=== PATIENT | female | born 1940 | race Caucasian/White ===

== ENCOUNTER 2024-11-30 12:32 | Outpatient (CLI) | payer OTHER, SELFPAY ==
--- OUTSIDE RECORDS SUMMARY | 2024-11-30 14:27 | XMS_ITS | Clinical Summary ---
Author Organization [facility] Address [address] [place] [address] Care Team Providers Care Converter Skimmer Name Role Phone Anna Sutton MD Primary Care Provider Allergies Active Allergy Reactions Criticality Noted Date Comments Aleksander Inhibitors Cough Low 03/30/2018 Medications aspirin (ASPIR-81) 81 mg tablet take 1 tablet by oral route every day 0 0 07/27/19 14 Active Additional Information Patient taking differently:81 mg,Pre-op hold instructions for ASA will be given to pt by Dr Herbert's office., Reported on 10/03/2022 cholecalcifero l (VITAMIN D-3) 1,000 unit tablet Take 1 tablet (1,000 Units total) by mouth daily Active multivitamin capsule Take 1 capsule by mouth daily Active amLODIPine (NORVASC) 5 mg tablet Take 1 tablet (5 mg total) by mouth daily 90 tablet 3 03/08/20 24 Active irbesartan (AVAPRO) 75 mg tablet Take 1 tablet (75 mg total) by mouth daily 90 tablet 1 06/30/19 25 Active chlorthalidone (HYGROTON) 25 mg tablet TAKE 1 TABLET(25 MG) BY MOUTH DAILY 90 tablet 1 07/01/19 25 Active atorvastatin (LIPITOR) 80 mg tablet TAKE 1 TABLET(80 MG) BY MOUTH DAILY 90 tablet 1 07/01/19 25 Active irbesartan (AVAPRO) 300 mg tablet TAKE 1/2 TABLET BY MOUTH EVERY DAY 90 tablet 1 01/23/20 22 Discontinued Active Problems Problem Noted Date Diagnosed Date History of colon polyps 10/30/2022 Assessment & Plan (10/30/2022 11:11 AM CDT): Colonoscopy September 2022 with tubular adenoma. -repeat colonoscopy September 2027 Stenosis of right carotid artery 09/04/2022 Chronic diarrhea 04/28/2022 Overview (04/28/2022): Added automatically from request for surgery [id number] Assessment & Plan (10/30/2022 11:16 AM CDT): Chronic diarrhea for the past year, 4-5 loose watery bowel movements per day. Also has urgency to have a bowel movement after meals. No change with stopping dairy products. Does admit to drinking 2 cups of coffee daily. Patient also mentioned she had a cholecystectomy in May 2021. Colonoscopy September 2022 with biopsies negative for microscopic colitis, normal terminal ileum. Patient states diarrhea has resolved since last visit, therefore she did not complete stool studies. -follow up if diarrhea recurs Assessment & Plan (04/28/2022 1:20 PM BICYCLE MESSENGER): Chronic diarrhea for the past year, 4-5 loose watery bowel movements per day. Also has urgency to have a bowel movement after meals. No change with stopping dairy products. Does admit to drinking 2 cups of coffee daily. Last colonoscopy over 10 years ago. Patient also mentioned she had a cholecystectomy in May 2021. -advised patient to avoid coffee -we will order labs and stool studies for further evaluation -schedule colonoscopy -The risks (risks of bleeding, infection, perforation requiring surgery, missed polyps/cancer, dental injury, aspiration pneumonia, anesthesia complications such as drug reaction and cardiopulmonary complications including rare chance of ), benefits, and alternatives of the planned procedure were explained to the patient who understands and consents to having procedure done. Anemia 04/28/2022 Overview (04/28/2022): Added automatically from request for surgery [id number] Assessment & Plan (10/30/2022 11:17 AM CDT): Noted on labs from January of 2022, hemoglobin 11.7. Patient denies any overt GI bleeding. EGD and colonoscopy September 2022 as above. Labs June 2022 with normal hemoglobin. -if anemia recurs, can consider capsule endoscopy Assessment & Plan (04/28/2022 1:21 PM BICYCLE MESSENGER): Noted on labs from January of 2022, hemoglobin 11.7. Patient denies any overt GI bleeding. -schedule EGD same day as colonoscopy -The risks (risks of bleeding, infection, perforation requiring surgery, missed polyps/cancer, dental injury, aspiration pneumonia, anesthesia complications such as drug reaction and cardiopulmonary complications including rare chance of ), benefits, and alternatives of the planned procedure were explained to the patient who understands and consents to having procedure done. Gastroesophageal reflux disease without esophagi tis 04/28/2022 Assessment & Plan (10/30/2022 11:16 AM CDT): Patient states had GERD however this improved after cholecystectomy. No longer taking medication. EGD September 2022 with nonobstructive Schatzki's ring, 4 cm hiatal hernia, gastritis, and duodenal diverticulum. -Pepcid OTC p.r.n. -RECOMMENDATIONS given include: anti-reflux maneuvers, Avoid acidic foods like oranges and tomatoes., avoidance of spicy foods, avoid eating 3-4 hours before bed, elevation of the head of the bed, and weight loss Assessment & Plan (04/28/2022 1:21 PM BICYCLE MESSENGER): Patient states had GERD however this improved after cholecystectomy. No longer taking medication. -RECOMMENDATIONS given include: anti-reflux maneuvers, Avoid acidic foods like oranges and tomatoes., avoidance of spicy foods, avoid eating 3-4 hours before bed, elevation of the head of the bed, and weight loss Left foot pain 05/30/2021 Elevated alkaline phosphatase level 10/19/2018 Overview (10/19/2018): 4-19 Alk phos 140, repeat 6 mo Assessment & Plan (01/02/2020 9:38 AM CDT): Lab today Localized osteoporosis witho ut current pathological fracture 09/09/2016 Overview (01/02/2020): 3-17 hip -2.1 Osteopenia 11/07: RHINA left femoral neck -2.5 Assessment & Plan (01/02/2020 9:37 AM CDT): Next check 2020 Assessment & Plan (04/13/2019 7:20 AM CDT): Recommend to take Vitamin D 600-1000 units per day along with calcium 1200 units per day. Do bone building exercise (walking and light hand weights) most days. Assessment & Plan (10/12/2018 10:09 AM CDT): Repeat RHINA this year. Check vitamin D level. Assessment & Plan (09/24/2017 10:15 AM CDT): Check vitamin D. Impaired fasting glucose 09/03/2015 Overview (04/13/2019): 9-17 A1C 6.0% 10/08: 5.7% Watching sweets. Assessment & Plan (01/02/2020 9:46 AM CDT): Lab today Assessment & Plan (04/13/2019 7:18 AM CDT): Lab today Assessment & Plan (10/12/2018 10:07 AM CDT): The hemoglobin A1C level will be checked today. Discussed the importance of continuing to exercise regularly (at least four days a week) and to watch the intake of simple sugars and carbs. Alcohol should be limited to no more than 4-6 servings a week. Assessment & Plan (03/30/2018 10:13 AM CDT): The pre-diabetes is acceptably controlled. The hemoglobin A1C today is 5.8%. Discussed the importance of continuing to exercise regularly (at least four days a week) and to watch the intake of simple sugars and carbs. Assessment & Plan (09/24/2017 10:14 AM CDT): The hemoglobin A1C level will be checked today. Discussed the importance of continuing to exercise regularly (at least four days a week) and to watch the intake of simple sugars and carbs. Alcohol should be limited to no more than 4-6 servings a week. Assessment & Plan (03/11/2017 1:29 PM CDT): The hemoglobin A1C level will be checked today. Discussed the importance of continuing to exercise regularly (at least four days a week) and to watch the intake of simple sugars and carbs. Alcohol should be limited to no more than 4-6 servings a week. Bilateral carotid artery disease 01/22/2015 Overview (01/02/2020): 7-15 carotid: 50-75% stenosis on right May get light headed at time. Possible vision change and swallowing issues when this occurs - lasts a short time. 10/07: no change Assessment & Plan (08/18/2022 10:01 AM BICYCLE MESSENGER): Continue statin Assessment & Plan (01/02/2020 9:45 AM CDT): Stable No changes Assessment & Plan (04/13/2019 11:18 AM CDT): Will update carotid scan Assessment & Plan (09/24/2017 10:16 AM CDT): Repeat carotid dopplers. Continue aspirin and statin. Stage 3b chronic kidney disease 12/26/2014 Overview (09/26/2016): Chronic kidney disease stage 3 Assessment & Plan (01/02/2020 9:46 AM CDT): Keep the blood pressure and blood sugar under good control. Avoid NSAIDs (advil and Aleve). Stay well hydrated. Assessment & Plan (04/13/2019 7:19 AM CDT): Keep the blood pressure and blood sugar under good control. Avoid NSAIDs (advil and Aleve). Stay well hydrated. Assessment & Plan (10/12/2018 10:07 AM CDT): She knows to avoid anti-inflammatory medications. Will continue to follow closely. Assessment & Plan (09/24/2017 10:13 AM CDT): She knows to avoid anti-inflammatory medications. Will continue to follow closely. Assessment & Plan (03/11/2017 1:29 PM CDT): She knows to avoid anti-inflammatory medications. Will continue to follow closely. Atherosclerosis of aorta 10/25/2014 Overview (01/02/2020): Aortic atherosclerosis On a statin Assessment & Plan (02/29/2024 1:52 PM CDT): This was seen on past imaging and is basically plaque build up of the aorta. This can be normal with aging but elevated cholesterol, blood sugar, blood pressure, or smoking can make this worse. I recommend statin to treat this condition. Assessment & Plan (03/03/2023 1:31 PM CDT): This was seen on past imaging and is basically plaque build up of the aorta. This can be normal with aging but elevated cholesterol, blood sugar, blood pressure, or smoking can make this worse. I recommend statin to treat this condition. Assessment & Plan (08/18/2022 10:00 AM BICYCLE MESSENGER): This was seen on past imaging and is basically plaque build up of the aorta. This can be normal with aging but elevated cholesterol, blood sugar, blood pressure, or smoking can make this worse. I recommend statin to treat this condition. Assessment & Plan (08/14/2021 7:20 AM BICYCLE MESSENGER): This was seen on past imaging and is basically plaque build up of the aorta. This can be normal with aging but elevated cholesterol, blood sugar, blood pressure, or smoking can make this worse. I recommend statin to treat this condition. Assessment & Plan (02/11/2021 2:13 PM CDT): This was seen on past imaging and is basically plaque build up of the aorta. This can be normal with aging but elevated cholesterol, blood sugar, blood pressure, or smoking can make this worse. I recommend statin to treat this condition. Assessment & Plan (01/02/2020 9:37 AM CDT): Continue statin Assessment & Plan (04/13/2019 7:20 AM CDT): Ongoing- on a statin Assessment & Plan (10/12/2018 10:06 AM CDT): Continue with aspirin and statin therapy to decrease risk for heart attack and stroke as this is a marker that increases her risk for such. Assessment & Plan (09/24/2017 10:12 AM CDT): Continue statin, aspirin. Temporary cerebral vascular dysfunction 07/27/19 14 Overview (01/02/2020): TIA (transient ischemic attack) On statin and ASA BP controlled Assessment & Plan (01/02/2020 9:38 AM CDT): No return of symptoms Assessment & Plan (04/13/2019 7:19 AM CDT): No active symptoms Hyperlipidemia 07/27/2013 Overview (04/13/2019): HYPERLIPIDEMIA NEC/NOS On a statin Assessment & Plan (08/18/2022 10:01 AM BICYCLE MESSENGER): Continue statin Assessment & Plan (01/02/2020 9:46 AM CDT): We will check labs today and make adjustments to medications as needed. Patient should focus on limiting bad fats in the diet and using exercise as a way to improve the lipid status. Assessment & Plan (04/13/2019 12:52 PM CDT): Continue on the statin Assessment & Plan (10/12/2018 10:07 AM CDT): To continue to efforts at getting 4-5 servings of fruits and/or vegetables a day. A fasting lipid profile will be checked today. Assessment & Plan (09/24/2017 10:13 AM CDT): To continue to efforts at getting 4-5 servings of fruits and/or vegetables a day. A fasting lipid profile will be checked today. Benign hypertensive kidney d isease with chronic kidney disease stage I through stage IV, or unspecified(403.10) 07/27/2013 Overview (01/02/2020): 4-19 increase chlorthalidone from 12.5/d to 25/d She is taking medications regularly. She denies chest pains, palpitations or shortness of breath. Assessment & Plan (01/02/2020 9:44 AM CDT): The blood pressure is under good control. Ideally it should be under 130/80. Continue medications without adjustment. Continue efforts to eat well (4-5 fruits and veggies) daily and exercise for about 30 min nearly every day. Adopt the [place] diet. Watch salt intake, keeping to less than 2000mg per day. Limit alcohol. Include stratagies to cope with stress. Labs will be checked today. Assessment & Plan (04/13/2019 7:19 AM CDT): The blood pressure is under good control. Ideally it should be under 130/80. Continue medications without adjustment. Continue efforts to eat well (4-5 fruits and veggies) daily and exercise for about 30 min nearly every day. Adopt the [place] diet. Watch salt intake, keeping to less than 2000mg per day. Limit alcohol. Include stratagies to cope with stress. Assessment & Plan (10/12/2018 10:31 AM CDT): The blood pressure is not quite adequately controlled. Ideally, I want it below 130/80. Will continue with the same medications as prescribed but have her increase the chlorthalidone to 25 mg a day. Salt intake needs to be restricted to keep the sodium level at less than 2000 mg a day. Regular exercise is also important and should be at least four days a week. She is to check her pressure at home and send me readings in two weeks. Assessment & Plan (03/30/2018 10:20 AM CDT): The blood pressure is adequately controlled but the cough is likely due to lisinopril. Ideally, I want it below 130/80. Will change lisinopril to irbesartan 300 mg a day. Salt intake needs to be restricted to keep the sodium level at less than 2000 mg a day. Regular exercise is also important and should be at least four days a week. Assessment & Plan (09/24/2017 10:12 AM CDT): The blood pressure is adequately controlled. Ideally, I want it below 130/80. Will continue with the same medications as prescribed. Salt intake needs to be restricted to keep the sodium level at less than 2000 mg a day. Regular exercise is also important and should be at least four days a week. Assessment & Plan (03/11/2017 1:27 PM CDT): The blood pressure is adequately controlled. Ideally, I want it below 130/80. Will continue with the same medications as prescribed. Salt intake needs to be restricted to keep the sodium level at less than 2000 mg a day. Regular exercise is also important and should be at least four days a week. Chronic diastolic heart failure 07/27/2013 Overview (09/24/2017): 1-14 echo: grade I diast dysfunction, EF 75% Assessment & Plan (01/02/2020 9:45 AM CDT): Stable No changes Assessment & Plan (04/13/2019 7:19 AM CDT): Stable No changes Assessment & Plan (10/12/2018 10:06 AM CDT): Currently well compensated. No changes to her medical regimen. Assessment & Plan (09/24/2017 10:12 AM CDT): Control BP better. As below. Resolved Problems Problem Noted Date Diagnosed Date Resolved Date Fracture treatment convalesc ence or palliative care 05/09/2021 03/03/2023 Displaced avulsion fracture (chip fracture) of left talus, initial encounter for closed fracture 05/09/2021 03/03/2023 Acute pain of left knee 04/13/201912/20 Overview (04/13/2019): Last week - twisted her knee - did not fall. Tylenol used and resting and elevating. May be getting better. Assessment & Plan (04/13/2019 11:36 AM CDT): Use Rest, Ice, Compression, Elevation for the next week Then can start PT if needed Use Tylenol 1000 mg three times per day for pain Call if not improving Health examination of defined subpopulation 04/13/2019 03/03/2023 Overview (04/13/2019): [employer] paperwork reviewed Assessment & Plan (01/02/2020 9:39 AM CDT): [employer] paperwork completed Assessment & Plan (04/13/2019 12:54 PM CDT): [employer] paperwork completed Medicare annual wellness visit, subsequent 09/24/2017 02/04/2021 Assessment & Plan (01/02/2020 11:09 AM CDT): Dentist: up to date Eye exam: up to date Mammogram: no longer screening DEXA: up to date Colon: no longer screening The patient should continue to focus on diet and exercise as a way to maintain and improve health. Screenings and immunizations are up to date. Will review labs performed today and contact the patient with the results. At this point continue the current medication regimen. Assessment & Plan (10/12/2018 10:06 AM CDT): Please see below for a list of your medical conditions and recommendations. Assessment & Plan (09/24/2017 10:09 AM CDT): Please see below for a list of your medical conditions and recommendations. BMI 33.0-33.9,adult 03/11/2017 08/28/19 24 Assessment & Plan (01/02/2020 9:45 AM CDT): BMI Follow-up includes: nutrition counseling and exercise counseling. Assessment & Plan (04/13/2019 7:19 AM CDT): BMI Follow-up includes: nutrition counseling and exercise counseling. Assessment & Plan (03/30/2018 10:12 AM CDT): She needs to continue efforts at weight loss through regular exercise and calorie restriction, making sure to avoid high fat foods, simple carbohydrates (sugars) and any beverages containing sugar. To work at eating at least 4-5 servings of fruits and vegetables a day. The ideal BMI is 25.0. Assessment & Plan (09/24/2017 10:15 AM CDT): She needs to continue efforts at weight loss through regular exercise and calorie restriction, making sure to avoid high fat foods, simple carbohydrates (sugars) and any beverages containing sugar. To work at eating at least 4-5 servings of fruits and vegetables a day. The ideal BMI is 25.0. Assessment & Plan (03/11/2017 1:32 PM CDT): She needs to continue efforts at weight loss through regular exercise and calorie restriction, making sure to avoid high fat foods, simple carbohydrates (sugars) and any beverages containing sugar. To work at eating at least 4-5 servings of fruits and vegetables a day. The ideal BMI is 25.0. Immunizations Immunization Administration Dates Next Due Influenza, Quad, Adjuvantate d, Intramuscular 03/27/2022 Influenza, Quadrivalent, Hig h Dose, Preservative Free, Intrr 03/11/2023,02/17/2021,02/24/2020 Influenza, Trivalent, High D ose, Split, Preservative Free, Intramuscular 03/08/2024,04/13/2019,03/30/2018,03/11,03/05/2016 Influenza, Trivalent, IM (MDV) 03/01/2015,2013,03/22/2013 Influenza, Unspecified 03/25/2021 Pfizer SARS-CoV-2 Monovalent Vaccination (12+ Yrs) PURPLE 04/01/2021,03/20/2021,09/09/2020,08/16 Pneumococcal Conjugate PCV 13 11/04/2015, 015 Pneumococcal Polysaccharide PPV23 09/09/2016,10/2006 RSV Vaccine, Pref, Recombina nt, Subunit, Adjuvanted, PF, IM (Arexvy) 04/17/2023 Tdap 08/24/2014 ZOSTER LIVE 02/23/2014 ZOSTER Recombinant 07/06/2019,04/22/2019 Surgical History Surgery Date Site/Laterality Comments APPENDECTOMY 06/22/1993 - 06/21/1994 Appendectomy HYSTERECTOMY 06/22/1987 - 06/21/1988 Hysterectomy OTHER SURGICAL HISTORY 06/22/1996 - 06/21/1997 autoimmune hepatitis: s/p liver biopsy BIOPSY 06/22/1997 - 06/21/1998 liver CHOLECYSTECTOMY CATARACT EXTRACTION W/ INTRAOCULAR LENS IMPLANT 06/22/2018 - 06/21/2019 Bilateral Medical History Medical History Date Comments Hx Other Medical 1997 autoimmune hepa titis Temporary cerebral vascular dysfunction 2014 TIA - Transient ischaemic attack; Comments: [facility] 03/28/2015 - Hx Other Medical Hyperlipidemia; Comments: [facility] 03/28/2015 - Hx Other Medical Diastolic dysfu ction; Comments: [facility] 03/28/2015 - Hx Other Medical Chronic kidney disease Stage III; Comments: [facility] 03/28/2015 - Hx Other Medical Aortic atherosc lerosis; Comments: [facility] 03/28/2015 - Hypertension Hypertension 201 1 Chronic kidney disease stage 3 Hyperlipidemia Cataract Colon polyp Urinary tract infection Kidney stone Family History Medical History Relation Name Comments Other Brother 3 DM, HTN, heart disease; Hypertension Brother 4 HTN; Heart attack Father [place]; Other Mother acute pancreati tis; Relation Name Status Comments Brother 1 Alive Brother 2 Alive Brother 3 Brother 4 Father Alive Mother Alive Social History Tobacco Use Types Packs/Day Years Used Date Smoking Tobacco: Never Smokeless Tobacco: Never Tobacco Cessation:Counseling Given: Not Answered Alcohol Use Standard Drinks/Week Comments Yes 0 (1 standard drink = 0.6 oz pur e alcohol) AUDIT-C Answer Date Recorded Q1: How often do you have a drink containing alc ohol? 2-3 times a week 10/15/2022 Q2: How many drinks containi ng alcohol do you have on a typical day when you are drinking? 1 or 2 10/15/2022 Q3: How often do you have si x or more drinks on one occasion? Never 10/15/2022 PHQ-2 Answer Date Recorded PHQ-2 Total Score (If total score is 3 or more points, staff should administer the PHQ-9) 0 03/08/2024 Personal Safety Answer Date Recorded Have you ever been in or are you currently in a harmful physical or emotional relationship or is someone making you feel afraid or unsafe? Denies 10/15/2022 Comments No Sex and Gender Information Value Date Recorded Sex Assigned at Not on file Legal Sex Female 7:32 PM BICYCLE MESSENGER Gender Identity Female 03/06/2021 2:44 PM CDT Sexual Orientation Not on file Obstetrics History Para Term AB IAB SAB Ectopic Multiple Livin g Live Births 2 Date Outcome GA Total Labor Labor/2nd/3rd Weight Sex Type Anes PTL Gt A1 A5 Name Clin Last Filed Vital Signs Vital Sign Reading Time Taken Comments Blood Pressure 122/70 03/08/2024 9:23 AM CDT Pulse 83 03/08/2024 9:23 AM CDT Temperature 36.7 C (98 F) 03/08/2024 9:23 AM CDT Respiratory Rate 20 10/15/2022 11:1 0 AM CDT Oxygen Saturation 97% 03/08/2024 9:23 AM CDT Inhaled Oxygen Concentration - - Weight 69.3 kg (152 lb 12.8 oz) 03/08/2024 9:23 AM CDT Height 152.4 cm (5') 03/08/2024 9:23 AM CDT Body Mass Index 29.84 03/08/2024 9:23 AM CDT Plan of Treatment Health Maintenance Due Date Last Done Comments Hepatitis B Screening 1958 Osteoporosis Screening-Bone Density Scan 01/30/2024 01/29/2022, 11/02/2018, 10/19/2018, Additional history exists Covid-19 Vaccine (2023-07 5 season) 2024 03/16/2023, 10/11/2021, 04/01/2021, Additional history exists DTaP/Tdap/Td Vaccine (2 - Td or Tdap) 08/24/2024 08/24/2014 Fall Risk Assessment 08/27/2024 08/28/2023, 08/26/2022, 08/21/2021, Additional history exists Well Visit 65+ 08/27/2024 08/28/2023, 12/2022, 08/21/2021, Additional history exists Depression Screening 03/08/2025 03/08/2024, 08/28/2023, 03/11/2023, Additional history exists Colon Cancer Screening-Colonoscopy 10/16/20272022, 04/26/2008 Pneumococcal vaccine 65+ Completed 017, 11/04/2015, 08/24/2014, Additional history exists Zoster Vaccine Completed 07/06/2019, 06/2018, 02/23/2014 Influenza Vaccine Completed 03/08/2024, , 03/27/2022, Additional history exists Medical Devices Implanted Type Area Hand Or Machine Paster Device Identifier Shelf Expiration Date Model / Serial / Lot Lens Implanted:Qty: 2 Bilateral: Eye Procedures Procedure Name Priority Date/Time Associated Diagnosis Comments COLONOSCOPY 10/15/2022 10:19 AM CDT DEXA AXIAL SKELETON BONE DENSITY 1 OR MORE SITES Schedule Routine, Read Routine (OP Routine) 01/29/2022 2:06 PM CDT Post-menopausal from Last 3 Months or Most Recently Relevant to Health Maintenance Results * COLONOSCOPY (10/15/2022 10:19 AM CDT) Anatomical Region Laterality Modality Other Narrative Procedure Note Edwin Barahona MD - 10/15/2022 10:19 AM CDT [facility] ENDOSCOPY Patient Name: Lay Olivier Procedure Date: 10/15/2022 10:19 AM Date of : 1940 Admit Type: Outpatient Age: 82 Gender: Female Attending MD: Edwin Barahona M.D. Room: [facility] ENDOSCOPY ROOM 06 Note Status: Finalized Procedure: Colonoscopy Indications: Chronic diarrhea, Anemia Referring MD: Anna Sutton M.D. Providers: Edwin Barahona M.D. Medicines: Monitored Anesthesia Care Complications: No immediate complications. Estimated Blood Loss: Estimated blood loss: none. Procedure: The benefits, risks and alternatives of theprocedure and sedation were discussed and informed consentwas obtained. All questions were answered. Please referto the signed informed consent document in the medical record. The scope was passed under direct vision.The [id number]-EX164A colonoscope was introduced through theanus and advanced to the terminal ileum. The colonoscopy was performed without difficulty. The patient tolerated the procedure well. The quality of thebowel preparation was good. Scope withdrawal time was 10 minutes. Prep was administered in a split dose. Findings: The perianal and digital rectal examinations were normal. The terminal ileum appeared normal. A diminutive polyp was found in the ascending colon. The polyp was removed with a cold biopsy forceps. Resection and retrieval were complete. Non-bleeding internal hemorrhoids were found during retroflexion. The hemorrhoids were small. Biopsies for histology were taken with a cold forceps from the right colon and left colon for evaluation of microscopic colitis. The exam was otherwise without abnormality. Impression: - The examined portion of the ileum was normal. - One diminutive polyp in the ascending colon,removed with a cold biopsy forceps. Resected andretrieved. - Non-bleeding internal hemorrhoids. - The examination was otherwise normal. - Biopsies were taken with a cold forceps from the right colon and left colon for evaluation of microscopic colitis. Recommendation: - Patient has a contact number available for emergencies. The signs and symptoms of potential delayed complications were discussed with thepatient. Return to normal activities tomorrow. Written discharge instructions were provided to thepatient. - High fiber diet. - Continue present medications. - Await pathology results. - Repeat colonoscopy in 5 years for surveillance. - Return to GI clinic as previously scheduled. Edwin Barahona M.D. Edwin Barahona M.D. 10/15/2022 10:53:09 AM . Number of Addenda: 0 Note Initiated On: 10/15/2022 10:19 AM Recognized by the [place] for promoting quality in endoscopy us Edwin Barahona MD ENDOSCOPY PROCEDURES Final Resul t * Dexa Axial Skeleton Bone Density 1 or 2 Site (01/29/2022 2:06 PM CDT) Anatomical Region Laterality Modality Body N/A Mammography 01/30/2022 10:5 0 PM CDT Narrative 01/30/2022 10:53 PM CDT EXAM DESCRIPTION: DEXA AXIAL SKELETON BONE DENSITY 1 OR MORE SITES REASON FOR STUDY: 81 y/o year old F with given history of screening. Hand Or Machine Paster/Model: Fliqz A (S/N [id number]) CLINICAL INFORMATION: Current height: 60 inches Maximum height: 62 inches Weight: 154 pounds Risk factors: Postmenopausal COMPARISON: None available. FINDINGS: AP LUMBAR SPINE L1-L4: Total BMD is 1.045 g/cm2 T-score is 0.0 LEFT HIP: Total BMD is 0.772 g/cm2 T-score is -1.4 Femoral neck BMD is 0.611 g/cm2 T-score is -2.1 FRAX: 10 year risk for a major osteoporotic fracture is 16 %, 10 year risk for a hip fracture is 4.7 % IMPRESSION: Based on the left femoral neck bone mineral density (T-score -2.1 ) the patient has low bone mass . REFERENCE: Bone mineral density: Normal (T-score above or = -1.0) Low bone mass (T-score between -1.0 and -2.5) replaces the previously used term osteopenia Osteoporosis (T-score = or below -2.5) Medical evaluation for secondary causes of low bone mineral density may be appropriate. FRAX is a World Health Organization validated fracture risk assessment tool that calculates a person's 10 year probability of a major osteoporosis related fracture and hip fracture. According to the National Osteoporosis Foundation guidelines, postmenopausal women and men age 50 or older with low bone mass and a 10 year probability of a major osteoporosis related fracture = or greater than 20% or a 10 year probability of a hip fracture = or greater than 3% should be considered for treatment. For further information, including treatment recommendations, please refer to the 2013 ISCD Official Positions (http://www.iscd.org) and the NOF's Clinician's Guide to Prevention and Treatment of Osteoporosis (http://www.nof.org/professionals/clinical-guidelines) THIS IS AN ELECTRONICALLY VERIFIED FINAL REPORT 01/30/2022 10:53 PM - Electronically signed by Fitz Rivas M.D. MF: DARRYN Report ID: [id number] Reading Location: [address] Note Fitz Rivas MD - 01/30/2022 EXAM DESCRIPTION: DEXA AXIAL SKELETON BONE DENSITY 1 OR MORE SITES REASON FOR STUDY: 81 y/o year old F with given history ofscreening. Hand Or Machine Paster/Model: Fliqz A (S/N [id number]) CLINICAL INFORMATION: Current height: 60 inches Maximum height: 62 inches Weight: 154 pounds Risk factors: Postmenopausal COMPARISON: None available. FINDINGS: AP LUMBAR SPINE L1-L4: Total BMD is 1.045 g/cm2 T-score is 0.0 LEFT HIP: Total BMD is 0.772 g/cm2 T-score is -1.4 Femoral neck BMD is 0.611 g/cm2 T-score is -2.1 FRAX: 10 year risk for a major osteoporotic fracture is 16 %, 10 year risk for ahip fracture is 4.7 % IMPRESSION: Based on the left femoral neck bone mineral density(T-score -2.1 ) the patient has low bone mass . REFERENCE: Bone mineral density: Normal (T-score above or = -1.0) Low bone mass (T-score between -1.0 and -2.5) replaces thepreviously used term osteopenia Osteoporosis (T-score = or below -2.5) Medical evaluation for secondary causes of low bone mineral density may be appropriate. FRAX is a World Health Organization validated fracture risk assessmenttool that calculates a person's 10 year probability of a major osteoporosisrelated fracture and hip fracture. According to the National OsteoporosisFoundation guidelines, postmenopausal women and men age 50 or older with low bonemass and a 10 year probability of a major osteoporosis related fracture = or greater than 20% or a 10 year probability of a hip fracture = or greaterthan 3% should be considered for treatment. For further information, including treatment recommendations, please referto the 2013 ISCD Official Positions (http://www.iscd.org) and the NOF's Clinician's Guide to Prevention and Treatment of Osteoporosis (http://www.nof.org/professionals/clinical-guidelines) THIS IS AN ELECTRONICALLY VERIFIED FINAL REPORT 01/30/2022 10:53 PM - Electronically signed by Fitz Rivas M.D. MF: DARRYN Report ID: [id number] Reading Location: [place] [address] Anna Sutton MD [facility] [place] [facility] Final Result from Last 3 Months or Most Recently Relevant to Health Maintenance Insurance [facility] Care Teams Converter Skimmer Relationship Specialty Start Date End Date Anna Sutton MD PCP - General Internal Medicine 02/11/21
--- OUTSIDE RECORDS SUMMARY | 2024-11-30 14:27 | XMS_ITS | Referral Summary ---
Author Organization [facility] Address [address] [place] [address] Care Team Providers Care Electrical Systems Engineer Name Role Phone Anna Sutton MD Primary [...] (04/28/2022): Added automatically from request for surgery [id number] Assessment & Plan (10/30/2022 11:16 AM CDT): [...] recurs Assessment & Plan (04/28/2022 1:20 PM BRIM STRETCHER): Chronic diarrhea for the past year, 4-5 [...] (04/28/2022): Added automatically from request for surgery [id number] Assessment & Plan (10/30/2022 11:17 AM CDT): Noted on labs from January of 2022, hemoglobin 11.7. Patient denies any overt GI bleeding. EGD and colonoscopy September 2022 as above. Labs June 2022 with normal hemoglobin. -if anemia recurs, can consider capsule endoscopy Assessment & Plan (04/28/2022 1:21 PM BRIM STRETCHER): Noted on labs from January of 2022, [...] loss Assessment & Plan (04/28/2022 1:21 PM BRIM STRETCHER): Patient states had GERD however this improved [...] change Assessment & Plan (08/18/2022 10:01 AM BRIM STRETCHER): Continue statin Assessment & Plan (01/02/2020 9:45 [...] condition. Assessment & Plan (08/18/2022 10:00 AM BRIM STRETCHER): This was seen on past imaging and is basically plaque build up of the aorta. This can be normal with aging but elevated cholesterol, blood sugar, blood pressure, or smoking can make this worse. I recommend statin to treat this condition. Assessment & Plan (08/14/2021 7:20 AM BRIM STRETCHER): This was seen on past imaging and [...] statin Assessment & Plan (08/18/2022 10:01 AM BRIM STRETCHER): Continue statin Assessment & Plan (01/02/2020 9:46 [...] of defined subpopulation 04/13/2019 03/03/2023 Overview (04/13/2019): [employer] paperwork reviewed Assessment & Plan (01/02/2020 9:39 AM CDT): [employer] paperwork completed Assessment & Plan (04/13/2019 12:54 PM CDT): [employer] paperwork completed Medicare annual wellness visit, subsequent [...] 08/24/2014 ZOSTER LIVE 02/23/2014 ZOSTER Recombinant 07/06/2019,04/22/2019 Social History Tobacco Use Types Packs/Day Years [...] on file Legal Sex Female 7:32 PM BRIM STRETCHER Gender Identity Female 03/06/2021 2:44 PM CDT Sexual Orientation Not on file Last Filed Vital Signs Vital Sign Reading [...] 03/08/2024 9:23 AM CDT Plan of Treatment Not on file Medical Devices Implanted Type Area First Aid Instructor Device Identifier Shelf Expiration Date Model / [...] Barahona MD - 10/15/2022 10:19 AM CDT [facility] GI ENDOSCOPY Patient Name: Lay Olivier Procedure Date: 10/15/2022 10:19 AM Date of : 1940 Admit Type: Outpatient Age: 82 Gender: Female Attending MD: Edwin Barahona M.D. Room: [facility] ENDOSCOPY ROOM 06 Note Status: Finalized Procedure: [...] The scope was passed under direct vision.The [id number]-[id number] colonoscope was introduced through theanus and advanced [...] On: 10/15/2022 10:19 AM Recognized by the [employer]intestinal Endoscopy for promoting quality in endoscopy Edwin Barahona MD ENDOSCOPY PROCEDURES Final Resul t * Dexa Axial Skeleton Bone Density 1 or 2 Site (01/29/2022 2:06 PM CDT) Anatomical Region Laterality Modality Body N/A Mammography 01/30/2022 10:5 0 PM CDT Narrative 01/30/2022 10:53 PM CDT EXAM DESCRIPTION: DEXA AXIAL SKELETON BONE DENSITY 1 OR MORE SITES REASON FOR STUDY: 81 y/o year old F with given history of screening. First Aid Instructor/Model: OggiFinogi A (S/N [id number]) CLINICAL INFORMATION: Current height: 60 inches Maximum [...] Fitz Rivas M.D. MF: DARRYN Report ID: [id number] Reading Location: [place] [address] Procedure Note Fitz Rivas MD - 01/30/2022 EXAM DESCRIPTION: DEXA AXIAL SKELETON BONE DENSITY 1 OR MORE SITES REASON FOR STUDY: 81 y/o year old F with given history ofscreening. First Aid Instructor/Model: OggiFinogi A (S/N [id number]) CLINICAL INFORMATION: Current height: 60 inches Maximum [...] Fitz Rivas M.D. MF: DARRYN Report ID: [id number] Reading Location: [place] [address] Anna Sutton MD IMG DXA PROCE DURES Final Result from Last 3 Months or Most Recently Relevant to Health Maintenance Insurance [facility] Care Teams Electrical Systems Engineer Relationship Specialty Start Date End Date Anna Sutton MD PCP - General Internal Medicine 02/11/21
--- OUTSIDE RECORDS SUMMARY | 2024-11-30 14:27 | XMS_ITS | Continuity of Care Document ---
Author Organization [facility] Address [address] [place] [address] Phone Care Team Providers Care Quill Collector Name Role Phone No Information Unavailable Unavailable Medications Medication Instructions Dosage Effective Dates (start - stop) Status Comments No Drug Therapy Prescribed Advance Directives Directive Yes / No Effective Date File Name No Information Encounters Encounter Description Practice Location Reason(s) For Visit Diagnoses Date Provider Providers Copied on Encounter [facility], [address] [place] [address], [address], [place] tel:[phone] No Information No Information Family History Family Member Type Diagnosis Age At Onset No Information Payers Payer name Insurance type Covered constitution party ID Authoriza tion(s) No Information Social History [...]
--- OUTSIDE RECORDS SUMMARY | 2024-11-30 14:27 | XMS_ITS | Encounter Summary ---
Author Organization [facility] Address [address] [place] [address] Phone Care Team Providers Care Gas Check Pad Maker Name Role Phone Anna Sutton MD Primary Care Provider Encounter Details Date Type Department Care Team (Late st Contact Info) Description 09/24/2017 Orders Only [facility] ProviderYonis MD [address] [place], [place] [id number] Social History Tobacco Use Types Packs/Day Years Used Date Smoking Tobacco: Never Smokeless Tobacco: Never Alcohol Use Standard Drinks/Week Comments Yes 0 (1 standard drink = 0.6 oz pur e alcohol) Comments Unknown Sex and Gender Information Value Date Recorded Sex Assigned at Not on file Legal Sex Female 7:32 PM ASSURANCE MANAGER INSURANCE Gender Identity Female 03/06/2021 2:44 PM CDT Sexual Orientation Not on file documented as of this encounter Plan of Treatment Not on file documented as of this encounter Procedures Procedure Name Priority Date/Time Associated Diagnosis Comments DISCHARGE LABORATORY CUMULATIVE REPORT 09/24/2017 12:00 AM CDT documented in this encounter Results * DISCHARGE LABORATORY CUMULATIVE REPORT (09/24/2017 12:00 AM CDT) Narrative 09/24/2017 12:00 AM CDT Ordered by an unspecified provider. Historical Provider LAB BLOOD ORDERABLES Marissa l Result documented in this encounter Visit Diagnoses Not on filedocumented in this encounter Care Teams Gas Check Pad Maker Relationship Specialty Start Date End Date Anna Sutton MD PCP - General Internal Medicine 02/11/21 documented as of this encounter
[2024-11-30 19:48] LABS: Basophils Absolute Auto 0.1 K/mm3 (0.0-0.1); Basophils Percent Auto 0.6 % (0.2-1.2); Eosinophils Absolute Auto 0.1 K/mm3 (0-0.3); Eosinophils Percent Auto 1.5 % (0-4.4); Hematocrit 38.3 % (37.0-47.0); Hemoglobin 11.9 g/dL (12.0-15.0); Immature Granulocyte Absolute 0.03 K/mm3 (0.00-0.031); Immature Granulocyte Percent A 0.4 % (0-0.5); Lymphocytes Absolute Auto 1.66 K/mm3 (0.9-3.2); Lymphocytes Percent Auto 20.3 % (18.3-44.2); Mean Corpuscular HGB Conc 31.1 g/dl (32-36); Mean Corpuscular Hemoglobin 29.6 pg (26-34); Mean Corpuscular Volume 95.3 fl (80-100); Monocytes Absolute Auto 0.7 K/mm3 (0.1-0.6); Monocytes Percent Auto 8.9 % (2.6-8.5); Neutrophils Absolute Auto 5.6 K/mm3 (1.3-6.7); Neutrophils Percent Auto 68.3 % (45.5-73.1); Platelet Count Result 312 k/mm3 (150-375); Red Blood Count 4.02 M/mm3 (4.2-5.4); Red Cell Distribution Width 14.2 % (11.5-14.5); White Blood Count 8.2 K/mm3 (4.5-10.0)
[2024-11-30 21:32] LABS: Alanine Aminotransferase 10 U/L (6-35); Albumin Level 4.8 g/dL (3.5-5.1); Alkaline Phosphatase 121 U/L (38-126); Anion Gap 11 mmol/L (4-12); Aspartate Amino Transferase 43 U/L (14-36); Bilirubin,Total 0.4 mg/dL (0.2-1.3); Blood Urea Nitrogen 31 mg/dL (7-17); Calcium 10.4 mg/dL (8.4-10.2); Carbon Dioxide 25 mmol/L (22-30); Chloride 102 mmol/L (98-107); Cholesterol 229 mg/dL (0-200); Estimated Glomerular Filt Rate 39; Glucose 94 mg/dL (65-110); HDL Direct 59 mg/dL; Potassium 4.3 mmol/L (3.4-5.0); Sodium 138 mmol/L (137-145); Total Protein 7.8 g/dL (6.3-8.2); Triglycerides 229 mg/dL (<150)
[2024-11-30 21:47] LABS: LDL Cholesterol Direct 90 mg/dL
[2024-11-30 22:02] LABS: Thyroid Stimulating Hormone 0.126 uIU/mL (0.465-4.680)
== END 2024-11-30 12:33 | disposition home or self-care (01) ==
LOC: ANHGOSHLAB 12:33
PROVIDERS: PCP Family Medicine; Visit Provider Clinical Nurse Specialist
DX: Z13.29 Encounter for screening for other suspected endocrine disorder (principal); I10 Essential (primary) hypertension; E78.5 Hyperlipidemia, unspecified; N28.9 Disorder of kidney and ureter, unspecified
CPT/HCPCS: 36415; 80053; 80061; 84443; 85025

== ENCOUNTER 2024-12-19 09:32 | Outpatient (CLI) | payer OTHER, SELFPAY ==
[2024-12-19 13:14] LABS: Total Triiodothyronine (T3) 0.97 NG/ML (0.82-1.58)
== END 2024-12-19 09:33 | disposition home or self-care (01) ==
LOC: ANHGOSHLAB 09:33
PROVIDERS: PCP Family Medicine; Visit Provider Clinical Nurse Specialist
DX: R79.89 Other specified abnormal findings of blood chemistry (principal); R53.83 Other fatigue
CPT/HCPCS: 36415; 84443; 84480

== ENCOUNTER 2025-03-29 10:53 | Outpatient (CLI) | payer OTHER, SELFPAY ==
[2025-03-29 19:18] LABS: Alanine Aminotransferase 8 U/L (6-35); Albumin Level 4.1 g/dL (3.5-5.1); Alkaline Phosphatase 123 U/L (38-126); Anion Gap 9 mmol/L (4-12); Aspartate Amino Transferase 32 U/L (14-36); Bilirubin,Total 0.2 mg/dL (0.2-1.3); Blood Urea Nitrogen 26 mg/dL (7-17); Calcium 9.8 mg/dL (8.4-10.2); Carbon Dioxide 26 mmol/L (22-30); Chloride 102 mmol/L (98-107); Estimated Glomerular Filt Rate 41; Glucose 77 mg/dL (65-110); Potassium 3.5 mmol/L (3.4-5.0); Sodium 137 mmol/L (137-145); Total Protein 7.1 g/dL (6.3-8.2)
[2025-03-29 19:22] LABS: Hematocrit 34.7 % (37.0-47.0); Hemoglobin 11.5 g/dL (12.0-15.0); Immature Granulocyte Percent A 0.2 % (0-0.5); Lymphocytes Absolute Auto 1.72 K/mm3 (0.9-3.2); Mean Corpuscular HGB Conc 33.1 g/dl (32-36); Mean Corpuscular Hemoglobin 30.3 pg (26-34); Mean Corpuscular Volume 91.6 fl (80-100); Nucleated Red Blood Cells Absolute Auto 0.000 K/mm3 (0.0-0.012); Nucleated Red Blood Cells Perc 0.0 % (0.0-0.2); Platelet Count Result 275 k/mm3 (150-375); Red Blood Count 3.79 M/mm3 (4.2-5.4); White Blood Count 5.6 K/mm3 (4.5-10.0)
== END 2025-03-29 10:54 | disposition home or self-care (01) ==
LOC: ANHGOSHLAB 10:54
PROVIDERS: PCP Family Medicine; Visit Provider Family Medicine
DX: R19.7 Diarrhea, unspecified (principal)
CPT/HCPCS: 36415; 80053; 85025

== ENCOUNTER 2025-03-30 10:23 | Outpatient (NON) | payer OTHER, SELFPAY ==
[2025-03-30 12:46] LABS: IFOB Positive Control Positive; Immunochemical Fecal Occult Bl Positive (N)
[2025-03-30 13:20] LABS: Toxigenic C. Diff NEGATIVE (NEGATIVE)
== END 2025-03-30 10:24 | disposition home or self-care (01) ==
PROVIDERS: PCP Family Medicine; Visit Provider Family Medicine
DX: R19.7 Diarrhea, unspecified (principal)
CPT/HCPCS: 82274; 87177; 87427; 87493

== ENCOUNTER 2025-03-31 13:33 | Outpatient (NON) | payer OTHER, SELFPAY ==
[2025-04-03 14:08] LABS: Pancreatic Elastase, Fecal 78 (>200)
[2025-04-04 16:08] LABS: Fats, Neutral Normal (.); Fats, Total Normal (.)
== END 2025-03-31 13:34 | disposition home or self-care (01) ==
PROVIDERS: PCP Family Medicine; Visit Provider Family Medicine
DX: R19.7 Diarrhea, unspecified (principal)
CPT/HCPCS: 82653; 82705; 89055

== ENCOUNTER 2025-05-16 15:21 | Outpatient (CLI) | payer OTHER, SELFPAY ==
--- OUTSIDE RECORDS SUMMARY | 1999-06-21 18:00 | XMS_ITS | Continuity of Care Document ---
Author Organization [facility] Address [address] [place] [address] Phone Care Team Providers Care Unit Manager Name Role Phone No Information Unavailable Unavailable Medications Medication Instructions Dosage Effective Dates (start - stop) Status Comments No Drug Therapy Prescribed Advance Directives Directive Yes / No Effective Date File Name No Information Encounters Encounter Description Practice Location Reason(s) For Visit Diagnoses Date Provider Providers Copied on Encounter [facility], [address] [place] [address], [id number], [place] tel:[phone] No Information No Information Family History Family Member Type Diagnosis Age At Onset No Information Payers Payer name Insurance type Covered democrat ID Authoriza tion(s) No Information Social History [...]
--- OUTSIDE RECORDS SUMMARY | 2025-05-16 17:01 | XMS_ITS | Encounter Summary ---
Author Organization [facility] Address [address] [place] [address] Phone Care Team Providers Care Type Caster Name Role Phone Anna Sutton MD Primary Care Provider Encounter Details Date Type Department Care Team (Late st Contact Info) Description 09/24/2017 Orders Only [facility] ProviderYonis MD [address] [place] [id number] Social History Tobacco Use Types Packs/Day Years Used Date Smoking Tobacco: Never Smokeless Tobacco: Never Alcohol Use Standard Drinks/Week Comments Yes 0 (1 standard drink = 0.6 oz pur e alcohol) Comments Unknown Sex and Gender Information Value Date Recorded Sex Assigned at Not on file Legal Sex Female 7:32 PM BILLBOARD POSTER HELPER Gender Identity Female 03/06/2021 2:44 PM CDT Sexual Orientation Not on file documented as of this encounter Functional Status * In the past year, patient experienced: Question Answer Date of Assessment Author One or more falls in the t year No 09/24/2017 9:54 AM Prashant Vergara [place] * BP Location Answer Date of Assessment Author Right arm 09/24/2017 9:53 AM Lo Kurtz [place] * BP Location Answer Date of Assessment Author Right arm 09/24/2017 9:53 AM Lo Kurtz [place] documented as of this encounter Plan of Treatment Not on file documented as of this encounter Procedures Procedure Name Priority Date/Time Associated Diagnosis Comments DISCHARGE LABORATORY CUMULATIVE REPORT 09/24/2017 12:00 AM CDT documented in this encounter Results * DISCHARGE LABORATORY CUMULATIVE REPORT (09/24/2017 12:00 AM CDT) Narrative 09/24/2017 12:00 AM CDT Ordered by an unspecified provider. us Historical Provider LAB BLOOD ORDERABLES Marissa l Result documented in this encounter Visit Diagnoses Not on filedocumented in this encounter Care Teams Type Caster Relationship Specialty Start Date End Date Anna Sutton MD PCP - General Internal Medicine 02/11/21 04/26/25 documented as of this encounter
--- OUTSIDE RECORDS SUMMARY | 2025-05-16 17:01 | XMS_ITS | Clinical Summary ---
Author Organization [facility] Address [address] [place] [address] Care Team Providers Care Automotive Sales Manager Name Role Phone Unavailable Primary Care Provider Unavailabl e Allergies Active Allergy Reactions Criticality Noted Date [...] daily 90 tablet 1 06/30/19 25 Active atorvastatin (LIPITOR) 80 mg tablet TAKE 1 TABLET(80 MG) BY MOUTH DAILY 90 tablet 1 07/01/19 25 Active irbesartan (AVAPRO) 300 mg tablet TAKE 1/2 TABLET BY MOUTH EVERY DAY 90 tablet 1 01/23/20 22 Discontinued chlorthalidone (HYGROTON) 25 mg tablet TAKE 1 TABLET(25 MG) BY MOUTH DAILY 90 tablet 1 07/01/19 25 025 Discontinued chlorthalidone (HYGROTON) 25 mg tablet TAKE 1 TABLET(25 MG) BY MOUTH DAILY 90 tablet 1 04/27/20 25 025 Discontinued Active Problems Problem Noted Date Diagnosed Date History of colon polyps 10/30/2022 Assessment & Plan (10/30/2022 11:11 AM CDT): Colonoscopy September 2022 with tubular adenoma. -repeat colonoscopy September 2027 Stenosis of right carotid artery 09/04/2022 Chronic diarrhea 04/28/2022 Overview (04/28/2022): Added automatically from request for surgery [id number] Assessment & Plan (10/30/2022 11:16 AM CDT): [...] recurs Assessment & Plan (04/28/2022 1:20 PM BOOKKEEPING MANAGER): Chronic diarrhea for the past year, 4-5 [...] (04/28/2022): Added automatically from request for surgery [id number] Assessment & Plan (10/30/2022 11:17 AM CDT): Noted on labs from January of 2022, hemoglobin 11.7. Patient denies any overt GI bleeding. EGD and colonoscopy September 2022 as above. Labs June 2022 with normal hemoglobin. -if anemia recurs, can consider capsule endoscopy Assessment & Plan (04/28/2022 1:21 PM BOOKKEEPING MANAGER): Noted on labs from January of 2022, [...] loss Assessment & Plan (04/28/2022 1:21 PM BOOKKEEPING MANAGER): Patient states had GERD however this improved [...] D. Impaired fasting glucose 09/03/2015 Overview (04/13/2019): 9- A1C 6.0% 10/08: 5.7% Watching sweets. Assessment [...] change Assessment & Plan (08/18/2022 10:01 AM BOOKKEEPING MANAGER): Continue statin Assessment & Plan (01/02/2020 9:45 [...] condition. Assessment & Plan (08/18/2022 10:00 AM BOOKKEEPING MANAGER): This was seen on past imaging and is basically plaque build up of the aorta. This can be normal with aging but elevated cholesterol, blood sugar, blood pressure, or smoking can make this worse. I recommend statin to treat this condition. Assessment & Plan (08/14/2021 7:20 AM BOOKKEEPING MANAGER): This was seen on past imaging and [...] statin Assessment & Plan (08/18/2022 10:01 AM BOOKKEEPING MANAGER): Continue statin Assessment & Plan (01/02/2020 9:46 [...] of defined subpopulation 04/13/2019 03/03/2023 Overview (04/13/2019): [employer] paperwork reviewed Assessment & Plan (01/02/2020 9:39 AM CDT): [employer] paperwork completed Assessment & Plan (04/13/2019 12:54 PM CDT): [employer] paperwork completed Medicare annual wellness visit, subsequent [...] 2014 TIA - Transient ischaemic attack; Comments: [facility] 03/28/2015 - Hx Other Medical Hyperlipidemia; Comments: [facility] 03/28/2015 - Hx Other Medical Diastolic dysfu ction; Comments: [facility] 03/28/2015 - Hx Other Medical Chronic kidney disease Stage III; Comments: [facility] 03/28/2015 - Hx Other Medical Aortic atherosc lerosis; Comments: [facility] 03/28/2015 - Hypertension Hypertension 201 1 Chronic kidney disease stage 3 Hyperlipidemia Cataract Colon polyp Urinary tract infection Kidney stone Family History Medical History Relation Name Comments Other Brother 3 DM, HTN, heart disease; Hypertension Brother 4 HTN; Heart attack Father NC; Other Mother acute pancreati tis; Relation Name [...] on file Legal Sex Female 7:32 PM BOOKKEEPING MANAGER Gender Identity Female 03/06/2021 2:44 PM CDT Sexual Orientation Not on file Obstetrics History Para Term AB IAB SAB Ectopic Multiple Livin g Live Births 2 Date Outcome GA Total Labor Labor/2nd/3rd Weight Sex Type Anes PTL Tg A1 A5 Name Clin Last Filed Vital [...] 01/30/2024 01/29/2022, 11/02/2018, 10/19/2018, Additional history exists DTaP/Tdap/Td Vaccine (2 - Td or Tdap) 08/24/2024 08/24/2014 Fall Risk Assessment 08/27/2024 08/28/2023, 08/26/2022, 08/21/2021, Additional history exists Well Visit 65+ 08/27/2024 08/28/2023, 12/2022, 08/21/2021, Additional history exists Covid-19 Vaccine (2024- 6 season) 2025 03/16/2023, 10/11/2021, 04/01/2021, Additional history exists Influenza Vaccine (#1) 2025 , 03/11/2023, 03/27/2022, Additional history exists Depression Screening 03/08/2025 03/08/2024, 08/28/2023, 03/11/2023, Additional history exists Colon Cancer Screening-Colonoscopy 10/16/20272022, 04/26/2008 Pneumococcal vaccine 65+ Completed 017, 11/04/2015, 08/24/2014, Additional history exists Zoster Vaccine Completed 07/06/2019, 06/2018, 02/23/2014 Medical Devices Implanted Type Area Blending Tank Helper Device Identifier Shelf Expiration Date Model / [...] - 10/15/2022 10:19 AM CDT [facility] GI ENDOSCOPY Patient Name: Lay Olivier [...] The scope was passed under direct vision.The [id number] colonoscope was introduced through theanus and advanced [...] On: 10/15/2022 10:19 AM Recognized by the [place] [employer] G[employer]intestinal Endoscopy for promoting quality [...] old F with given history of screening. Blending Tank Helper/Model: Biodesy A (S/N [id number]) CLINICAL INFORMATION: Current height: 60 inches Maximum [...] Fitz Rivas M.D. MF: DARRYN Report ID: [id number] Reading Location: [place] [address] Procedure Note Fitz Rivas MD - 01/30/2022 EXAM DESCRIPTION: DEXA AXIAL SKELETON BONE DENSITY 1 OR MORE SITES REASON FOR STUDY: 81 y/o year old F with given history ofscreening. Blending Tank Helper/Model: Biodesy A (S/N [id number]) CLINICAL INFORMATION: Current height: 60 inches Maximum [...] Fitz Rivas M.D. MF: DARRYN Report ID: [id number] Reading Location: [place] [address] Anna DEVI DXA LUBNA ANGELES Final Result from Last 3 Months or Most Recently Relevant to Health Maintenance Insurance [facility] Member Subscriber Plan / Payer (Ef fective 2016-Present) Name:LAY OLIVIER Relation to Subscriber:Self Name:Lay Olivier Payer ID:[id number] (NAIC) Type:MEDICARE RISK OTHER Address: [place] [phone] [facility] Member Subscriber Plan / Payer (Ef fective 2016-Present) Name:LAY OLIVIER Relation to Subscriber:Self Name:Lay Olivier Payer ID:[id number] ([facility]) Type:MEDICARE RISK OTHER Address: [place] [id number]
[2025-05-16 20:08] LABS: Iron 64 ug/dL (37-170)
[2025-05-16 20:18] LABS: Percent Iron Saturation 24 % (20-50)
[2025-05-16 20:47] LABS: Vitamin B12 986.0 pg/mL (239-931)
[2025-05-16 20:49] LABS: Ferritin 21.50 ng/mL (11.1-264)
[2025-05-17 12:08] LABS: Deamidated Gliadin Abs, IgA 2 units (0-19); Deamidated Gliadin Abs, IgG 1 units (0-19); Immunoglobulin A, Qn 142 mg/dL (64-422)
== END 2025-05-16 15:22 | disposition home or self-care (01) ==
LOC: ANHGOSHLAB 15:22
PROVIDERS: PCP Family Medicine; Visit Provider Nurse Practitioner
DX: R19.5 Other fecal abnormalities (principal); D64.9 Anemia, unspecified
CPT/HCPCS: 36415; 82607; 82728; 82746; 82784; 83540; 83550; 86231; 86258

== ENCOUNTER 2025-05-17 10:34 | Outpatient (CLI) | payer OTHER, SELFPAY ==
--- OUTSIDE RECORDS SUMMARY | 1999-06-21 18:00 | XMS_ITS | Continuity of Care Document ---
Author Organization [facility] Address [address] [place] [address] Phone Care Team Providers Care Supervisor Cell Operation Name Role Phone No Information Unavailable Unavailable Medications Medication Instructions Dosage Effective Dates (start - stop) Status Comments No Drug Therapy Prescribed Advance Directives Directive Yes / No Effective Date File Name No Information Encounters Encounter Description Practice Location Reason(s) For Visit Diagnoses Date Provider Providers Copied on Encounter [facility], [address] [place] [address], [id number], [place] tel:[phone] No Information No Information Family History Family Member Type Diagnosis Age At Onset No Information Payers Payer name Insurance type Covered libertarian ID Authoriza tion(s) No Information Social History Type Description Quantity Date Captured Comments Sex Female Smoking Status No Information Chief Complaint And Reason For Visit No Information History Of Present Illness Encounter Date Complaint History Of Prese nt Illness No Information Medications Administered Medication Instructions Dosage Effective Dates (start - stop) Status Comments No Drug Therapy Prescribed Instructions Date Instruction Additional Infor mation No Information Assessments Type Assessment Date No Information
--- OUTSIDE RECORDS SUMMARY | 2025-05-17 11:23 | XMS_ITS | Clinical Summary ---
Author Organization [facility] Address [address] [place] [address] Care Team Providers Care Stereo Compiler Name Role Phone Unavailable Primary Care Provider [...] (04/28/2022): Added automatically from request for surgery [id number] Assessment & Plan (10/30/2022 11:16 AM CDT): [...] recurs Assessment & Plan (04/28/2022 1:20 PM PLASTER FORM MAKER): Chronic diarrhea for the past year, 4-5 [...] (04/28/2022): Added automatically from request for surgery [id number] Assessment & Plan (10/30/2022 11:17 AM CDT): Noted on labs from January of 2022, hemoglobin 11.7. Patient denies any overt GI bleeding. EGD and colonoscopy September 2022 as above. Labs June 2022 with normal hemoglobin. -if anemia recurs, can consider capsule endoscopy Assessment & Plan (04/28/2022 1:21 PM PLASTER FORM MAKER): Noted on labs from January of 2022, [...] loss Assessment & Plan (04/28/2022 1:21 PM PLASTER FORM MAKER): Patient states had GERD however this improved [...] change Assessment & Plan (08/18/2022 10:01 AM PLASTER FORM MAKER): Continue statin Assessment & Plan (01/02/2020 9:45 [...] condition. Assessment & Plan (08/18/2022 10:00 AM PLASTER FORM MAKER): This was seen on past imaging and is basically plaque build up of the aorta. This can be normal with aging but elevated cholesterol, blood sugar, blood pressure, or smoking can make this worse. I recommend statin to treat this condition. Assessment & Plan (08/14/2021 7:20 AM PLASTER FORM MAKER): This was seen on past imaging and [...] statin Assessment & Plan (08/18/2022 10:01 AM PLASTER FORM MAKER): Continue statin Assessment & Plan (01/02/2020 9:46 [...] of defined subpopulation 04/13/2019 03/03/2023 Overview (04/13/2019): [employer] paperwork reviewed Assessment & Plan (01/02/2020 9:39 AM CDT): [employer] paperwork completed Assessment & Plan (04/13/2019 12:54 PM CDT): [employer] paperwork completed Medicare annual wellness visit, subsequent [...] 2014 TIA - Transient ischaemic attack; Comments: [facility] 03/28/2015 - Hx Other Medical Hyperlipidemia; Comments: [facility] 03/28/2015 - Hx Other Medical Diastolic dysfu ction; Comments: [facility] 03/28/2015 - Hx Other Medical Chronic kidney disease Stage III; Comments: [facility] 03/28/2015 - Hx Other Medical Aortic atherosc lerosis; Comments: [facility] 03/28/2015 - Hypertension Hypertension 201 1 Chronic kidney disease stage 3 Hyperlipidemia Cataract Colon polyp Urinary tract infection Kidney stone Family History Medical History Relation Name Comments Other Brother 3 DM, HTN, heart disease; Hypertension Brother 4 HTN; Heart attack Father [place]; Other Mother acute pancreati tis; Relation Name [...] on file Legal Sex Female 7:32 PM PLASTER FORM MAKER Gender Identity Female 03/06/2021 2:44 PM CDT [...] 06/2018, 02/23/2014 Medical Devices Implanted Type Area Risk Mgr Device Identifier Shelf Expiration Date Model / [...] Barahona MD - 10/15/2022 10:19 AM CDT [facility] GI ENDOSCOPY Patient Name: Lay Olivier Procedure Date: 10/15/2022 10:19 AM Date of : 1940 Admit Type: Outpatient Age: 82 Gender: Female Attending MD: Edwin Barahona M.D. Room: [facility] ENDOSCOPY ROOM 06 Note Status: Finalized Procedure: [...] The scope was passed under direct vision.The [id number]-[id number] colonoscope was introduced through theanus and advanced [...] clinic as previously scheduled. Edwin Barahona M.D. Ewdin Barahona M.D. 10/15/2022 10:53:09 AM . Number [...] old F with given history of screening. Risk Mgr/Model: Netero A (S/N [id number]) CLINICAL INFORMATION: Current height: 60 inches Maximum [...] Fitz Rivas M.D. MF: DARRYN Report ID: [id number] Reading Location: [place] [address] Procedure Note Fitz Rivas MD - 01/30/2022 EXAM DESCRIPTION: DEXA AXIAL SKELETON BONE DENSITY 1 OR MORE SITES REASON FOR STUDY: 81 y/o year old F with given history ofscreening. Risk Mgr/Model: Netero A (S/N [id number]) CLINICAL INFORMATION: Current height: 60 inches Maximum [...] Fitz Rivas M.D. MF: DARRYN Report ID: [id number] Reading Location: [place] [address] Anna DEVI DXA LUBNA ANGELES Final Result from Last 3 Months or Most Recently Relevant to Health Maintenance Insurance [facility] Member Subscriber Plan / Payer (Ef fective 2016-Present) Name:LAY OLIVIER Relation to Subscriber:Self Name:Lay Olivier Payer ID:[id number] (NAIC) Type:MEDICARE RISK OTHER Address: [place] [id number] [facility] Member Subscriber Plan / Payer (Ef fective 2016-Present) Name:LAY OLIVIER Relation to Subscriber:Self Name:Lay Olivier Payer ID:[id number] ([facility]) Type:MEDICARE RISK OTHER Address: [place] [id number]
--- OUTSIDE RECORDS SUMMARY | 2025-05-17 11:23 | XMS_ITS | Encounter Summary ---
Author Organization [facility] Address [address] [place] [address] Phone Care Team Providers Care Art Tracer Name Role Phone Anna Sutton MD Primary Care Provider Encounter Details Date Type Department Care Team (Late st Contact Info) Description 09/24/2017 Orders Only [facility] ProviderYonis MD [address] [place] [address] Social History Tobacco Use Types Packs/Day Years Used Date Smoking Tobacco: Never Smokeless Tobacco: Never Alcohol Use Standard Drinks/Week Comments Yes 0 (1 standard drink = 0.6 oz pur e alcohol) Comments Unknown Sex and Gender Information Value Date Recorded Sex Assigned at Not on file Legal Sex Female 7:32 PM PASTA PRESS OPERATOR Gender Identity Female 03/06/2021 2:44 PM CDT [...] on filedocumented in this encounter Care Teams Art Tracer Relationship Specialty Start Date End Date Anna Sutton MD PCP - General Internal Medicine 02/11/21 04/26/25 documented as of this encounter
[2025-05-21 23:07] LABS: Calprotectin, Fecal 349 ug/g (0-120)
[2025-05-22 16:08] LABS: Pancreatic Elastase, Fecal 237 (>200)
== END 2025-05-17 10:35 | disposition home or self-care (01) ==
LOC: ANHLAB 10:35
PROVIDERS: PCP Family Medicine; Visit Provider Nurse Practitioner
DX: D64.9 Anemia, unspecified (principal); R19.5 Other fecal abnormalities
CPT/HCPCS: 82653; 83993

== ENCOUNTER 2025-06-01 14:07 | Outpatient (CLI) | payer OTHER, SELFPAY ==
--- NOTE | ~2025-06-01 | CT_ITS ---
EXAMINATION: CT abdomen pelvis w con DATE: 06/01/2025 14:59 INDICATION: Increasing abdominal hernia. TECHNIQUE: Computed tomography (CT) of the abdomen and pelvis was performed with 100 mL Omnipaque-350 intravenous contrast. Automated exposure control and iterative reconstruction technique were employed. The dose-length product was 396.43 mGy-cm. COMPARISON: None FINDINGS: Lung bases are clear. Small calcified pleural plaque along the right hemidiaphragm. Heart size is normal. No pericardial or pleural effusion. Moderate-sized sliding-type hiatal hernia. Cholecystectomy clips the gallbladder fossa. Liver, pancreas, bilateral adrenal glands and kidneys are normal. A few s plenic calcifications consistent with old granulomatous disease. Mild scattered diverticulosis without adjacent from trace stranding to suggest diverticulitis. No bowel obstruction. Suture line along the tip of the cecum consistent with prior appendectomy. Bladder is normal. The uterus is not identified and has likely been surgically resected. Fat-containing left paraumbilical ventral hernia which measures 6.4 x 5.6 x 2.3 cm and which extends through an os measuring 3.5 x 2.7 cm. No free intraperitoneal gas or fluid. No pathologically enlarged abdominal or pelvic lymphadenopathy. There is calcified atherosclerosis of the aorta and many of the other arteries. Mild lumbar and moderate lower thoracic spondylosis. IMPRESSION: 1. Moderate-sized sliding-type hiatal hernia. 2. Small to moderate-sized left paraumbilical ventral hernia. Reviewed, dictated and finalized at location A. UNT SUPPORT ANALYST
[2025-06-01 14:55] LABS: Estimated Glomerular Filt Rate 39
--- OUTSIDE RECORDS SUMMARY | 2025-06-01 17:01 | XMS_ITS | Encounter Summary ---
Author Organization [facility] Address [address] [place] [address] Phone Care Team Providers Care Manager Human Capital Name Role Phone Anna Sutton MD Primary Care Provider Encounter Details Date Type Department Care Team (Late st Contact Info) Description 09/24/2017 Orders Only [facility] ProviderYonis MD [address] [place] [address] Social History Tobacco Use Types Packs/Day Years Used Date Smoking Tobacco: Never Smokeless Tobacco: Never Alcohol Use Standard Drinks/Week Comments Yes 0 (1 standard drink = 0.6 oz pur e alcohol) Comments Unknown Sex and Gender Information Value Date Recorded Sex Assigned at Not on file Legal Sex Female 7:32 PM CLASSROOM INSTRUCTOR Gender Identity Female 03/06/2021 2:44 PM CDT [...] on filedocumented in this encounter Care Teams Manager Human Capital Relationship Specialty Start Date End Date Anna Sutton MD PCP - General Internal Medicine 02/11/21 04/26/25 documented as of this encounter
--- OUTSIDE RECORDS SUMMARY | 2025-06-01 17:01 | XMS_ITS | Clinical Summary ---
Author Organization [facility] Address [address] [place] [address] Care Team Providers Care Net Manager Name Role Phone Unavailable Primary Care [...] (04/28/2022): Added automatically from request for surgery [id number] Assessment & Plan (10/30/2022 11:16 AM CDT): [...] recurs Assessment & Plan (04/28/2022 1:20 PM LIGHT COIL WINDER): Chronic diarrhea for the past year, 4-5 [...] (04/28/2022): Added automatically from request for surgery [id number] Assessment & Plan (10/30/2022 11:17 AM CDT): Noted on labs from January of 2022, hemoglobin 11.7. Patient denies any overt GI bleeding. EGD and colonoscopy September 2022 as above. Labs June 2022 with normal hemoglobin. -if anemia recurs, can consider capsule endoscopy Assessment & Plan (04/28/2022 1:21 PM LIGHT COIL WINDER): Noted on labs from January of 2022, [...] loss Assessment & Plan (04/28/2022 1:21 PM LIGHT COIL WINDER): Patient states had GERD however this improved [...] change Assessment & Plan (08/18/2022 10:01 AM LIGHT COIL WINDER): Continue statin Assessment & Plan (01/02/2020 9:45 [...] condition. Assessment & Plan (08/18/2022 10:00 AM LIGHT COIL WINDER): This was seen on past imaging and is basically plaque build up of the aorta. This can be normal with aging but elevated cholesterol, blood sugar, blood pressure, or smoking can make this worse. I recommend statin to treat this condition. Assessment & Plan (08/14/2021 7:20 AM LIGHT COIL WINDER): This was seen on past imaging and [...] statin Assessment & Plan (08/18/2022 10:01 AM LIGHT COIL WINDER): Continue statin Assessment & Plan (01/02/2020 9:46 [...] of defined subpopulation 04/13/2019 03/03/2023 Overview (04/13/2019): [employer] paperwork reviewed Assessment & Plan (01/02/2020 9:39 AM CDT): [employer] paperwork completed Assessment & Plan (04/13/2019 12:54 PM CDT): [employer] paperwork completed Medicare annual wellness visit, subsequent [...] 2014 TIA - Transient ischaemic attack; Comments: [facility] 03/28/2015 - Hx Other Medical Hyperlipidemia; Comments: [facility] 03/28/2015 - Hx Other Medical Diastolic dysfu ction; Comments: [facility] 03/28/2015 - Hx Other Medical Chronic kidney disease Stage III; Comments: [facility] 03/28/2015 - Hx Other Medical Aortic atherosc lerosis; Comments: [facility] 03/28/2015 - Hypertension Hypertension 201 1 Chronic kidney disease stage 3 Hyperlipidemia Cataract Colon polyp Urinary tract infection Kidney stone Family History Medical History Relation Name Comments Other Brother 3 DM, HTN, heart disease; Hypertension Brother 4 HTN; Heart attack Father [place]; Other Mother acute pancreati tis; Relation Name [...] on file Legal Sex Female 7:32 PM LIGHT COIL WINDER Gender Identity Female 03/06/2021 2:44 PM CDT [...] 12/2022, 08/21/2021, Additional history exists Covid-19 Vaccine (2024-2 6 season) 2025 03/16/2023, 10/11/2021, 04/01/2021, Additional history exists Influenza Vaccine (#1) 2025 , 03/11/2023, 03/27/2022, Additional history exists Depression Screening 03/08/2025 03/08/2024, 08/28/2023, 03/11/2023, Additional history exists Colon Cancer Screening-Colonoscopy 10/16/20272022, 04/26/2008 Pneumococcal vaccine 65+ Completed 017, 11/04/2015, 08/24/2014, Additional history exists Zoster Vaccine Completed 07/06/2019, 1106/2018, 02/23/2014 Medical Devices Implanted Type Area Land Planner Device Identifier Shelf Expiration Date Model / [...] MD - 10/15/2022 10:19 AM CDT [facility] GI ENDOSCOPY Patient Name: Lay Olivier Procedure Date: 10/15/2022 10:19 AM Date of : 1940 Admit Type: Outpatient Age: 82 Gender: Female Attending MD: Edwin Barahona M.D. Room: [facility] ENDOSCOPY ROOM 06 Note Status: [...] The scope was passed under direct vision.The PCF-[id number] colonoscope was introduced through theanus and advanced [...] On: 10/15/2022 10:19 AM Recognized by the [place] [employer] for Gastrointestinal Endoscopy for promoting quality [...] old F with given history of screening. Land Planner/Model: Stio A (S/N [id number]) CLINICAL INFORMATION: Current height: 60 inches Maximum [...] Fitz Rivas M.D. MF: DARRYN Report ID: [id number] Reading Location: [place] [address] Procedure Note Fitz Rivas MD - 01/30/2022 EXAM DESCRIPTION: DEXA AXIAL SKELETON BONE DENSITY 1 OR MORE SITES REASON FOR STUDY: 81 y/o year old F with given history ofscreening. Land Planner/Model: Hologic Horizon A (S/N [id number]) CLINICAL INFORMATION: Current height: 60 inches Maximum [...] Fitz Rivas M.D. MF: DARRYN Report ID: [id number] Reading Location: [place] [address] Anna Sutton MD IM DXA PROCE DURES Final Result from Last 3 Months or Most Recently Relevant to Health Maintenance Insurance [facility]
== END 2025-06-01 14:08 | disposition home or self-care (01) ==
PROVIDERS: PCP Family Medicine; Visit Provider Nurse Practitioner
DX: R19.7 Diarrhea, unspecified (principal); R19.5 Other fecal abnormalities; K43.9 Ventral hernia without obstruction or gangrene; K44.9 Diaphragmatic hernia without obstruction or gangrene
CPT/HCPCS: 74177; Q9967

== ENCOUNTER 2025-06-06 01:41 | Day surgery (SDC) | payer OTHER, SELFPAY ==
[2025-05-29 10:19] VITALS: BMI 28.4
--- OUTSIDE RECORDS SUMMARY | 2025-06-06 01:44 | XMS_ITS | Clinical Summary ---
Author Organization [facility] Address [address] [place] [address] Care Team Providers Care Surgical Resident Name Role Phone Unavailable Primary Care Provider [...] (04/28/2022): Added automatically from request for surgery [id number] Assessment & Plan (10/30/2022 11:16 AM CDT): [...] recurs Assessment & Plan (04/28/2022 1:20 PM SPRING TIER): Chronic diarrhea for the past year, 4-5 [...] (04/28/2022): Added automatically from request for surgery [id number] Assessment & Plan (10/30/2022 11:17 AM CDT): Noted on labs from January of 2022, hemoglobin 11.7. Patient denies any overt GI bleeding. EGD and colonoscopy September 2022 as above. Labs June 2022 with normal hemoglobin. -if anemia recurs, can consider capsule endoscopy Assessment & Plan (04/28/2022 1:21 PM SPRING TIER): Noted on labs from January of 2022, [...] loss Assessment & Plan (04/28/2022 1:21 PM SPRING TIER): Patient states had GERD however this improved [...] change Assessment & Plan (08/18/2022 10:01 AM SPRING TIER): Continue statin Assessment & Plan (01/02/2020 9:45 [...] condition. Assessment & Plan (08/18/2022 10:00 AM SPRING TIER): This was seen on past imaging and is basically plaque build up of the aorta. This can be normal with aging but elevated cholesterol, blood sugar, blood pressure, or smoking can make this worse. I recommend statin to treat this condition. Assessment & Plan (08/14/2021 7:20 AM SPRING TIER): This was seen on past imaging and [...] statin Assessment & Plan (08/18/2022 10:01 AM SPRING TIER): Continue statin Assessment & Plan (01/02/2020 9:46 [...] of defined subpopulation 04/13/2019 03/03/2023 Overview (04/13/2019): [employer] paperwork reviewed Assessment & Plan (01/02/2020 9:39 AM CDT): [employer] paperwork completed Assessment & Plan (04/13/2019 12:54 PM CDT): [employer] paperwork completed Medicare annual wellness visit, subsequent [...] 2014 TIA - Transient ischaemic attack; Comments: [facility] 03/28/2015 - Hx Other Medical Hyperlipidemia; Comments: [facility] 03/28/2015 - Hx Other Medical Diastolic dysfu ction; Comments: [facility] 03/28/2015 - Hx Other Medical Chronic kidney disease Stage III; Comments: [facility] 03/28/2015 - Hx Other Medical Aortic atherosc lerosis; Comments: [facility] 03/28/2015 - Hypertension Hypertension 201 1 Chronic kidney disease stage 3 Hyperlipidemia Cataract Colon polyp Urinary tract infection Kidney stone Family History Medical History Relation Name Comments Other Brother 3 DM, HTN, heart disease; Hypertension Brother 4 HTN; Heart attack Father [place]; Other Mother acute pancreati tis; Relation Name [...] on file Legal Sex Female 7:32 PM SPRING TIER Gender Identity Female 03/06/2021 2:44 PM CDT [...] 1106/2018, 02/23/2014 Medical Devices Implanted Type Area Cylinder Valve Repairer Device Identifier Shelf Expiration Date Model / [...] Barahona MD - 10/15/2022 10:19 AM CDT [facility] GI ENDOSCOPY Patient Name: Lay Olivier Procedure Date: 10/15/2022 10:19 AM Date of : 1940 Admit Type: Outpatient Age: 82 Gender: Female Attending MD: Edwin Barahona M.D. Room: [facility] ENDOSCOPY ROOM 06 Note Status: Finalized Procedure: [...] The scope was passed under direct vision.The PCF-[id number] colonoscope was introduced through theanus and advanced [...] On: 10/15/2022 10:19 AM Recognized by the [place] [employer] for Gastrointestinal Endoscopy for promoting quality [...] old F with given history of screening. Cylinder Valve Repairer/Model: Digify A (S/N [id number]) CLINICAL INFORMATION: Current height: 60 inches Maximum [...] Fitz Rivas M.D. MF: DARRYN Report ID: [id number] Reading Location: [place] [address] Procedure Note Fitz Rivas MD - 01/30/2022 EXAM DESCRIPTION: DEXA AXIAL SKELETON BONE DENSITY 1 OR MORE SITES REASON FOR STUDY: 81 y/o year old F with given history ofscreening. Cylinder Valve Repairer/Model: Hologic Horizon A (S/N [id number]) CLINICAL INFORMATION: Current height: 60 inches Maximum [...] Fitz Rivas M.D. MF: DARRYN Report ID: [id number] Reading Location: [place] [address] Anna Sutton MD IM DXA PROCE DURES Final Result from Last 3 Months or Most Recently Relevant to Health Maintenance Insurance [facility]
--- OUTSIDE RECORDS SUMMARY | 2025-06-06 01:44 | XMS_ITS | Encounter Summary ---
Author Organization [facility] Address [address] [place] [address] Phone Care Team Providers Care Loadmaster Name Role Phone Anna Sutton MD Primary Care Provider Encounter Details Date Type Department Care Team (Late st Contact Info) Description 09/24/2017 Orders Only [facility] ProviderYonis MD [address] [place] [address] Social History Tobacco Use Types Packs/Day Years Used Date Smoking Tobacco: Never Smokeless Tobacco: Never Alcohol Use Standard Drinks/Week Comments Yes 0 (1 standard drink = 0.6 oz pur e alcohol) Comments Unknown Sex and Gender Information Value Date Recorded Sex Assigned at Not on file Legal Sex Female 7:32 PM COMMUNITY ASSOCIATE Gender Identity Female 03/06/2021 2:44 PM CDT [...] on filedocumented in this encounter Care Teams Loadmaster Relationship Specialty Start Date End Date Anna Sutton MD PCP - General Internal Medicine 02/11/21 04/26/25 documented as of this encounter
[2025-06-06 12:52] VITALS: BP 138/74; PULSE 98; RESP 20; TEMP 36.1; O2SAT 98; BMI 28.2
[2025-06-06] MEDS: LACTATED RINGERS 1,000 ML 150 ML IV CONT (13:07)
--- NOTE | 2025-06-06 13:35 | WPDANESEPPF ---
Anes - Initial Pre Proc Eval Procedure: Operation Date: 06/06/25 14:00 Proposed Procedures p EGD & Diagnostic Colonoscopy - Laith Adhikari MD Date/Time: 06/06/25 13:35 Surgeon: Laith Adhikari MD Pre Op Diagnosis: Diarrhea, unspecified Patient Data Age: 84 Gender: F Height: 1.52 m Weight: 65.6 kg Last Vital Signs Temp 97 F L 06/06/25 12:52 Pulse 98 06/06/25 12:52 Resp 20 06/06/25 12:52 BP 138/74 06/06/25 12:52 Pulse Ox 98 06/06/25 12:52 O2 Del Method Room Air 06/06/25 12:52 Allergies Allergy/AdvReac Type Severity Reaction Status Date / Time No Known Allergies Allergy Mild Verified 06/06/25 12:50 Home Medications ?Medication ?Instructions ?Recorded ?Confirmed ?Type aspirin 81 mg tablet,delayed 81 mg PO DAILY 08/18/24 06/06/25 History release (Adult Aspirin Regimen) cholecalciferol (vitamin D3) 25 25 mcg PO DAILY 08/18/24 06/06/25 History mcg (1,000 unit) capsule amlodipine 5 mg tablet (Norvasc) 5 mg PO DAILY #90 tabs 11/30/24 06/06/25 Rx atorvastatin 80 mg tablet (Lipitor) 80 mg PO DAILY #90 tabs 11/30/24 06/06/25 Rx chlorthalidone 25 mg tablet 25 mg PO DAILY #90 tabs 11/30/24 06/06/25 Rx irbesartan 75 mg tablet 75 mg PO DAILY #90 tabs 11/30/24 06/06/25 Rx Patient hx anesthesia problems: none Family hx anesthesia problems: none Results Review: All pre-operative results and documents have been reviewed as part of the pre-operative evaluation. [facility] Past Medical History Medical History Kidney disease Hypertension Hepatitis Headache, classical migraine Gallbladder disorder Surgical History Surgical History Hx of cholecystectomy H/O: hysterectomy Family History Family History Son , Cancer-passed 2024 No problems noted. Other Heart problem Hypertension Social History Social History Smoking status: Never smoker Second hand tobacco smoke exposure: No Alcohol intake: current Drinks per week: 4 Alcohol use details: wine Substance use: never Substance use type: does not use Lack of Transportation: No Lack of Food: Never True Current Housing: I Have Housing Concerned About Future Housing: No Difficulty Paying Gas/Electric Bills: No Difficulty Paying for Meds: No Currently Unemployed: No Education: Associate Degree Difficulty w/ Childcare or Family Care: No Living arrangements: with family Occupation/Education: retired Gender identity (if verbalized by the patient): Female Sexual Orientation (if Verbalized by the Patient): Straight or Heterosexual Spiritual care concerns: No Agree to blood products: Yes Anes - Eval Final PreProcedure Day of Procedure 06/06/25 13:35 Patient weight: normal Lungs: normal air movement Airway: Mallampati scale class II Neurological: alert and oriented Last oral intake: >/= 8 hours ASA classification: II Emergent: no Anesthetic plan: proceed Anesthesia type and monitoring: general GIVS and standard monitoring Results Review: All pre-operative results and documents have been reviewed as part of the pre-operative evaluation. HTN, hyperlipidemia, hx of GERD. Active w walking 1-2 fos, no cp or sob. Informed Consent: The patient's anesthetic plan and its attendant risks and benefits were discussed with the patient/family/POA. Questions were solicited and answers provided to the satisfaction of the patient/family/POA.
--- NOTE | 2025-06-06 13:52 | WPDHPUPDATE1 ---
History and Physical Update Update Date/Time: 06/06/25 13:52 History and Physical has been reviewed, including an updated exam of the patient. There are NO changes in the patient's condition. Risks, benefits, and alternatives have been discussed and questions answered. Patient agrees to proceed with procedure.
--- NOTE | 2025-06-06 14:09 | SUR.OPER ---
EGD ended 1406 colonoscopy started 1410
--- NOTE | 2025-06-06 14:10 | S_PTH ---
PATIENT: Lay Olivier LOC: [facility] Gutierrez#:[id number] AGE/SX: 84/F ROOM: RE06/06/[address]: Laith Adhikari MD : 1940 BED: DIS: 06/06/2025 SPEC #: [id number] RECD: 06/07/25 07:46 STATUS: BARRERA RERoni #: [id number] ERICA: 06/06/25 14:[address]: Laith Adhikari DEPT: [facility] Surgical RECD BY: Palma Mcintosh ENTERED: 06/07/25 07:47 SP TYPE: Surgical OTHR DR: Marleny Palmer DO Tissues: A - Gastric Biopsy B - Small Bowel Bx C - Colon Biopsy Procedures: Hematoxylin and Eosin Stain Gross and Microscopic Level 4
[2025-06-06 14:22] VITALS: BP 96/56; PULSE 79; RESP 21; O2SAT 98
[2025-06-06 14:32] VITALS: BP 116/56; PULSE 74; RESP 19; O2SAT 99
[2025-06-06 14:42] VITALS: BP 130/71; PULSE 75; RESP 15; O2SAT 100
== END 2025-06-06 14:52 | disposition home or self-care (01) ==
PROVIDERS: PCP Family Medicine; Referring Provider Nurse Practitioner; Visit Provider Internal Medicine Gastroenterology
PROC: 0DJ08ZZ Inspection of Upper Intestinal Tract, Via Natural or Artificial Opening Endoscopic (ICD-10-PCS; CPT 45378; principal; 2025-06-06 14:00)
DX: R19.5 Other fecal abnormalities (principal); K64.8 Other hemorrhoids; K57.30 Diverticulosis of large intestine without perforation or abscess without bleeding; K44.9 Diaphragmatic hernia without obstruction or gangrene; K21.9 Gastro-esophageal reflux disease without esophagitis; K29.70 Gastritis, unspecified, without bleeding; D64.9 Anemia, unspecified; I10 Essential (primary) hypertension; E78.5 Hyperlipidemia, unspecified; N28.9 Disorder of kidney and ureter, unspecified; Z79.82 Long term (current) use of aspirin; Z98.890 Other specified postprocedural states; Z90.49 Acquired absence of other specified parts of digestive tract; Z87.891 Personal history of nicotine dependence; Z80.9 Family history of malignant neoplasm, unspecified; Z82.49 Family history of ischemic heart disease and other diseases of the circulatory system
CPT/HCPCS: 43239; 45380; 88305; J2003; J2704; J7120